=== PATIENT | male | born 1955 | race Asian ===

== ENCOUNTER 2018-02-07 08:54 | Emergency (ER) | payer OTHER ==
[~2018-02-07] VITALS: Ht 172.7 cm; Wt 97.1 kg
[2018-02-07 08:58] VITALS: Ht 172.7 cm; Wt 97.1 kg
[2018-02-07 09:38] VITALS: BP 129/85
== END 2018-02-07 09:38 | disposition home or self-care (01) ==
LOC: ED 08:54
DX: H81.13 Benign paroxysmal vertigo, bilateral (principal); I48.2 Chronic atrial fibrillation; E78.00 Pure hypercholesterolemia, unspecified; I10 Essential (primary) hypertension; Z88.6 Allergy status to analgesic agent
CPT/HCPCS: 82962

== ENCOUNTER 2019-03-10 14:47 | Emergency (ER) | payer SELFPAY ==
[~2019-03-10] VITALS: Ht 172.7 cm; Wt 99.8 kg
[2019-03-10 14:51] VITALS: Ht 172.7 cm; Wt 99.8 kg
[2019-03-10 15:45] VITALS: BP 148/88
== END 2019-03-10 15:45 | disposition home or self-care (01) ==
LOC: ED 14:47
DX: R19.7 Diarrhea, unspecified (principal); R10.9 Unspecified abdominal pain; I10 Essential (primary) hypertension; E78.00 Pure hypercholesterolemia, unspecified; I48.91 Unspecified atrial fibrillation; Z88.6 Allergy status to analgesic agent